=== PATIENT | female | born 1940 | race African-American/Black ===

== ENCOUNTER 2017-05-19 14:01 | Emergency (ER) | payer MEDICARE ==
[~2017-05-19] VITALS: Ht 160 cm; Wt 62.7 kg
[2017-05-19] MEDS ORDERED: AMLO-511 PO (14:12)
[2017-05-19] MEDS ORDERED: PANT40TA25 PO (14:12)
[2017-05-19] MEDS ORDERED: LOSA50TA37 PO (14:12)
[2017-05-19] MEDS ORDERED: SIMV-260 PO (14:12)
[2017-05-19] MEDS ORDERED: ACETAMINOPHEN 325 MG TABLET PO ONE (16:15)
[2017-05-19 17:45] VITALS: BP 141/91
== END 2017-05-19 18:06 | disposition home or self-care (01) ==
LOC: EMS 14:10
DX: S70.02XA Contusion of left hip, initial encounter (principal); I10 Essential (primary) hypertension; E78.00 Pure hypercholesterolemia, unspecified; K21.9 Gastro-esophageal reflux disease without esophagitis; Z88.6 Allergy status to analgesic agent; Z79.899 Other long term (current) drug therapy; W01.0XXA Fall on same level from slipping, tripping and stumbling without subsequent striking against object, initial encounter; Y93.89 Activity, other specified; Y92.090 Kitchen in other non-institutional residence as the place of occurrence of the external cause; Y99.8 Other external cause status
CPT/HCPCS: 73503; 99284